=== PATIENT | female | born 1990 | race Caucasian/White ===

== ENCOUNTER → 2021-09-19 | Outpatient (CLI) | payer BC ==
--- NOTE | 2021-09-19 08:32 | KCIC ---
EXAM: Abdomen sonogram. HISTORY: Pain. TECHNIQUE: Sonographic imaging of the abdomen was performed. COMPARISON: None. FINDINGS: The liver is normal in size. No hepatic lesion is seen. The gallbladder is unremarkable. Th e common bile duct is normal in caliber. The right kidney, pancreas, aorta and inferior vena cava are unremarkable. IMPRESSION: No acute sonographic finding. Electronically signed by: Laura Garcia MD (09/19/2021 8:30 AM) [id number]
== END ==
LOC: KCIC US 07:54
PROVIDERS: ATTEND Family Medicine
DX: R10.11 Right upper quadrant pain (principal)
CPT/HCPCS: 76705